=== PATIENT | female | born 1990 | race African-American/Black ===

== ENCOUNTER 2018-10-26 09:03 | Emergency (ER) | payer OTHER ==
[~2018-10-26] VITALS: Ht 167.6 cm; Wt 68.0 kg
[2018-10-26 09:06] VITALS: BP 143/83
--- NOTE | 2018-10-26 09:12 | NUR ---
Patient ambulated to bed 4. RN evaluating patient at bedside.
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
[2018-10-26 09:41] VITALS: BP 140/82
--- NOTE | 2018-10-26 09:41 | NUR ---
Patient discharged with v/s stable. Written and verbal after care instructions given and explained. Patient alert, oriented and verbalized understanding of instructions. Ambulatory with steady gait. All questions addressed prior to discharge. ID band removed. Patient advised to follow up with PMD. Rx of ERYTHROMYCIN OINTMENT, KETOTIFEN FUMARATE OPTHALMIC SOLUTION given. Patient educated on indication of medication including possible reaction and side effects. Opportunity to ask questions provided and answered.
== END 2018-10-26 09:41 | disposition home or self-care (01) ==
LOC: MED 09:03
DX: H10.9 Unspecified conjunctivitis (principal); J45.909 Unspecified asthma, uncomplicated
CPT/HCPCS: 99283